=== PATIENT | male | born 1940 | race Caucasian/White ===

== ENCOUNTER 2023-11-13 09:47 | Outpatient (CLI) | payer MEDICARE, BC, SELFPAY ==
--- NOTE | 2023-11-25 16:59 | WPDSLEEPSTUD ---
Sleep Study Date of Study: 11/13/23 Ordering Provider: Pool Luna DO Interpreting Physician: Kaylene Salmon DO Sleep Study Type: Polysomnogram Height: 1.78 m Weight: 61.235 kg Body Mass Index: 19.3 Neck Circumference (inches): 14 Mcclellan: 7 Reason for Sleep Study Previously diagnosed ISAEL on CPAP. No compliance data or previous sleep study reports were provided. Sleep History The patient is an 83-year-old male with dementia, GERD, deafness, hyperlipidemia, hypertension, paroxysmal atrial fibrillation on pacemaker, polymyalgia rheumatica, rheumatoid arthritis and history of sleep apnea on CPAP had a sleep study ordered by his sergeant at [employer]. the patient goes to bed at 9:00 p.m. on both weekdays and weekends. It takes him 1 hour to fall asleep. He wakes up multiple times throughout the night. He gets 7 hours of sleep per night. He currently lives in assisted living. He will consume caffeinated beverages within 2 hours of bedtime. He does not engage in physical exercise before bedtime. He will watch television before falling asleep. He will take naps in the afternoon or the evening and they are refreshing. He consumes 4 cups of caffeinated beverage per day. He denies tobacco, alcohol and recreational drug use. [facility] Past Medical History Medical History Annual physical exam Dementia GERD (gastroesophageal reflux disease) Hearing impaired Hip pain, right Hyperlipidemia Hypertension ISAEL on CPAP Pacemaker 2015 Rheumatoid arthritis Sleep apnea Surgical History Surgical History H/O hernia repair History of hip replacement Family History Family History Father Cancer Mother Alzheimer disease Social History Social History Smoking status: Never smoker Alcohol intake: never Substance use: never Lack of Transportation: No Lack of Food: Never True Current Housing: I Have Housing Concerned About Future Housing: No Difficulty Paying Gas/Electric Bills: No Difficulty Paying for Meds: No Currently Unemployed: No Education: Don't Know Difficulty w/ Childcare or Family Care: No Living arrangements: with family Occupation/Education: retired Medications Home Medications Medication Instructions Recorded Confirmed Type atenolol 50 mg tablet 50 mg PO DAILY 07/22/23 11/04/23 History atorvastatin 10 mg tablet 10 mg PO QHS 07/22/23 11/04/23 History cholecalciferol (vitamin D3) 125 125 mcg PO DAILY 07/22/23 11/04/23 History mcg (5,000 unit) capsule folic acid 1 mg tablet 1 mg PO DAILY 07/22/23 11/04/23 History methotrexate sodium 2.5 mg tablet 10 mg PO WEEKLY #20 tabs 09/22/23 11/04/23 Rx triamcinolone acetonide 0.1 % 1 applic topical BID 2 weeks 10/13/23 11/04/23 Rx topical cream #453.6 grams rivaroxaban 20 mg tablet (Xarelto) 20 mg PO DAILY #90 tabs 11/04/23 11/04/23 Rx Sleep Procedure A full night polysomnogram using the [place] multi-channel system recorded the standard physiologic parameters including EEG, EOG, submentalis EMG, anterior tibialis EMG, EKG, body position, nasal and oral airflow using nasal pressure sensor and thermistor.? Respiratory parameters of chest and abdominal movements were recorded with Respiratory Inductance Plethysmography belts. Oxygen saturation was recorded by pulse oximetry. Video monitoring was also performed. Sleep stages, periodic limb movements, and EEG arousals were scored in 30 second epochs according to the criteria of the AASM Scoring Manual. The Apnea-Hypopnea Index was calculated using CMS guidelines for definition of hypopnea with 4% O2 desaturations while scoring respiratory events. Sleep Architecture The total recording time was 486.4 minutes.? The total sleep time was 119.5 minutes. Sleep latency wa
[2023-11-25 17:04] VITALS: BMI 19.3
== END 2023-11-14 06:54 | disposition home or self-care (01) ==
LOC: ANHCSM 09:49
PROVIDERS: PCP Family Medicine; Visit Provider Internal Medicine Cardiovascular Disease
DX: G47.33 Obstructive sleep apnea (adult) (pediatric) (principal); I10 Essential (primary) hypertension
CPT/HCPCS: 95810

== ENCOUNTER 2024-01-13 11:55 | Outpatient (CLI) | payer MEDICARE, BC, SELFPAY ==
[2024-01-13 14:57] LABS: Hepatitis C Virus Antibody Negative (Negative)
[2024-01-15 21:59] LABS: ANCA Screen Negative (Negative)
[2024-01-17 21:24] LABS: Cyclic Citrullinated Peptide <16 Units (<20)
== END 2024-01-13 11:56 | disposition home or self-care (01) ==
PROVIDERS: PCP Family Medicine; Visit Provider Internal Medicine
DX: M05.79 Rheumatoid arthritis with rheumatoid factor of multiple sites without organ or systems involvement (principal)
CPT/HCPCS: 36415; 86036; 86200; 86803

== ENCOUNTER 2024-02-02 10:03 | Outpatient (CLI) | payer MEDICARE, BC, SELFPAY ==
--- NOTE | ~2024-02-02 | XR_ITS ---
Right foot Technique: AP and lateral views were obtained. Clinical History: Rheumatoid arthritis Findings: No acute fracture or dislocation is seen. Osseous alignment is anatomic. Joint spaces are p reserved without erosive or degenerative change. Soft tissues are unremarkable. Impression: Unremarkable right foot radiographs. Reviewed, dictated and finalized at location . Impression: Unremarkable right foot radiographs.
--- NOTE | ~2024-02-02 | XR_ITS ---
Bilateral Hands Technique: Bilateral PA, oblique, and lateral views, and ball-catcher's view were obtained. Clinical History: Rheumatoid arthritis Findings: No acute fracture or dislocation is seen. Osseous alignment is anatomic. Joint spaces are p reserved. Soft tissues are unremarkable. Impression: Unremarkable bilateral hand radiographs. Reviewed, dictated and finalized at location . Impression: Unremarkable bilateral hand radiographs.
--- NOTE | ~2024-02-02 | XR_ITS ---
Left foot Technique: AP and lateral views were obtained. Clinical History: Rheumatoid arthritis Findings: No acute fracture or dislocation is seen. Osseous alignment is anatomic. Joint spaces are p reserved without erosive or degenerative change. Soft tissues are unremarkable. Impression: Unremarkable left foot radiographs. Reviewed, dictated and finalized at location . Impression: Unremarkable left foot radiographs.
== END 2024-02-02 10:04 | disposition home or self-care (01) ==
PROVIDERS: PCP Family Medicine; Visit Provider Internal Medicine
DX: M05.79 Rheumatoid arthritis with rheumatoid factor of multiple sites without organ or systems involvement (principal)
CPT/HCPCS: 73130; 73620